=== PATIENT | female | born 1970 | race Caucasian/White ===

== ENCOUNTER 2023-09-07 15:57 | Outpatient (CLI) | payer BC | END 2023-09-07 15:58 | disposition home or self-care (01) | LOC: SCSRAD 15:57 | PROVIDERS: ATTEND Nurse Practitioner Primary Care | DX: R05.9 Cough, unspecified (principal) | CPT/HCPCS: 71046 ==

== ENCOUNTER 2023-09-28 14:13 | Day surgery (SDC) | payer BC ==
[~2023-09-28 14:13] MED LIST: Zoledronic Acid/Mannitol&Water 5 MG in Premix 1 BAG IVPB SCH
[2023-09-28 14:46] VITALS: BP 145/74; TEMP 97.7
== END 2023-09-28 15:18 | disposition home or self-care (01) ==
LOC: ONC/OP 14:13
PROVIDERS: ATTEND Internal Medicine Endocrinology, Diabetes & Metabolism
DX: M81.0 Age-related osteoporosis without current pathological fracture (principal); E03.9 Hypothyroidism, unspecified; K21.9 Gastro-esophageal reflux disease without esophagitis; M79.7 Fibromyalgia; Z79.890 Hormone replacement therapy; Z79.899 Other long term (current) drug therapy; Z90.49 Acquired absence of other specified parts of digestive tract; Z90.710 Acquired absence of both cervix and uterus; Z87.59 Personal history of other complications of pregnancy, childbirth and the puerperium; Z91.041 Radiographic dye allergy status; Z88.5 Allergy status to narcotic agent; Z88.8 Allergy status to other drugs, medicaments and biological substances
CPT/HCPCS: 96365; J3489